=== PATIENT | female | born 1990 | race African-American/Black ===

== ENCOUNTER 2016-12-12 12:59 | Emergency (ER) | payer OTHER ==
[2016-12-12 13:25] VITALS: BP 107/58; PULSE 82; TEMP 98.5; BMI 22.2
[2016-12-12] MEDS ORDERED: IBUPROFEN 400 MG TABLET (FP) PO ONE ×2 (15:14→15:19)
--- NOTE | 2016-12-12 15:26 | PDOC ---
History of Present Illness - General Chief Complaint: Pain Stated Complaint: SWOLLEN ANKLES Time Seen by Provider: 12/12/16 13:59 History Source: Patient - History of Present Illness Occurred: reports: yesterday Lower Extremity Pain Location: bilateral: ankle (L>>R) Past History - Past Medical History Allergies/Adverse Reactions: Allergies Allergy/AdvReac Type Severity Reaction Status Date / Time No Known Allergies Allergy Verified 12/12/16 13:22 Home Medications: Ambulatory Orders NK [No Known Home Medication] 12/12/16 Psychiatric Problems: Yes (ANXEITY) - Psycho/Social/Smoking Cessation Hx Anxiety: No Suicidal Ideation: No Smoking History: Never smoked Have you smoked in the past 12 months: No Information on smoking cessation initiated: No Hx Alcohol Use: No Drug/Substance Use Hx: No Substance Use Type: None Review of Systems - Review of Systems Constitutional: No: Fever Respiratory: No: Shortness of Breath Cardiac (ROS): No: Chest Pain, Palpitations, Chest Tightness Musculoskeletal: Yes: Joint Pain, Joint Swelling *Physical Exam - Vital Signs Last Vital Signs Temp Pulse Resp BP Pulse Ox 98.5 F 82 18 107/58 100 12/12/16 13:23 12/12/16 13:23 12/12/16 13:23 12/12/16 13:23 12/12/16 13:23 - Physical Exam General Appearance: Yes: Appropriately Dressed. No: Apparent Distress HEENT: positive: Normal Voice Neck: positive: Supple Respiratory/Chest: negative: Respiratory Distress Extremity: positive: Tender, Swelling (minimal sweling and tenderness to L ankle diffusely, no erythema, no obvious bites or open wounds, no calf ttp, R ankle w/ no obvious swellign and no ttp) Integumentary: positive: Dry, Warm Neurologic: positive: Fully Oriented, Alert, Normal Mood/Affect Medical Decision Making - Medical Decision Making 12/12/16 15:26 26-year-old female, no significant history, presents with bilateral lower extremity swelling, left greater than right, that she noticed yesterday after leaving congregation. Also complaining of mild ache, mostly to left ankle. Denies any trauma. No fever or chills. No history of similar symptoms. Denies any obvious risk factors for DVT/PE See exam Atraumatic b/l ankle swelling, L>>R No s/o infxn No bites No RFs for DVT/PE ?dependent edema as pt stands for prolonged hrs daily at work vs [employer] vs rheum source -dc w/ pain control, instructions for leg elevated -pmd f/u if sxs persists 12/12/16 15:31 12/12/16 15:34 *DC/Admit/Observation/Transfer Diagnosis at time of Disposition: Ankle swelling Qualifiers: Laterality: unspecified laterality Qualified Code(s): M25.473 - Effusion, unspecified ankle - Discharge Dispostion Disposition: HOME Condition at time of disposition: Good - Patient Instructions Additional Instructions: The source of your symptoms is unclear at this time, but there were no evidence of serious pathology. Take Motrin as needed and elevate extremities at the end of the day. Follow-up with your PMD if symptom continue
== END 2016-12-12 16:22 | disposition home or self-care (01) ==
LOC: JERFT 12:59
DX: M25.473 Effusion, unspecified ankle (principal); F41.9 Anxiety disorder, unspecified
CPT/HCPCS: 99281-25

== ENCOUNTER 2017-02-18 14:31 | Emergency (ER) | payer SELFPAY ==
[2017-02-18 14:34] VITALS: BP 110/64; PULSE 76; TEMP 98; BMI 21.9
[2017-02-18] MEDS ORDERED: IBUPROFEN 600 MG TABLET (FP) PO ONE (15:17)
--- NOTE | 2017-02-18 15:29 | PDOC ---
History of Present Illness - General Chief Complaint: Injury Stated Complaint: INJURY Time Seen by Provider: 02/18/17 15:08 History Source: Patient Exam Limitations: No Limitations - History of Present Illness Initial Comments: 02/18/17 15:09 crush injury to right hand, [place] approximately 5 minutes before was unable to open. This incident occurred last night, ambulance was called but patient chose to return home and have follow-up today. Patient has continued complaints of pain denies numbness or tingling to hand or fingers , 02/18/17 15:50 Occurred: reports: just prior to arrival, this morning Severity: reports: mild Pain Location: reports: upper extremity Modifying Factors: improves with: cold therapy Associated Symptoms (Fall): denies symptoms Past History - Travel Traveled outside of the country in the last 30 days: No Close contact w/someone who was outside of country & ill: No - Past Medical History Allergies/Adverse Reactions: Allergies Allergy/AdvReac Type Severity Reaction Status Date / Time No Known Allergies Allergy Verified 02/18/17 14:34 Home Medications: Ambulatory Orders NK [No Known Home Medication] 12/12/16 Psychiatric Problems: Yes (ANXEITY) - Psycho/Social/Smoking Cessation Hx Anxiety: No Suicidal Ideation: No Smoking History: Never smoked Have you smoked in the past 12 months: No Information on smoking cessation initiated: No Hx Alcohol Use: No Drug/Substance Use Hx: No Substance Use Type: None Trauma Specific PMHX - Complaint Specific PMHX Back Injury: No Neck Injury: No Review of Systems - Review of Systems Able to Perform ROS?: Yes Is the patient limited Serbian proficient: Yes Constitutional: Yes: Symptoms Reported, See HPI Respiratory: No: Symptoms reported Musculoskeletal: Yes: See HPI. No: Symptoms Reported Neurological: Yes: Symptoms reported All Other Systems: Reviewed and Negative *Physical Exam - Vital Signs Last Vital Signs Temp Pulse Resp BP Pulse Ox 98 F 76 18 110/64 99 02/18/17 14:32 02/18/17 14:32 02/18/17 14:32 02/18/17 14:32 02/18/17 14:32 - Physical Exam General Appearance: Yes: Nourished, Appropriately Dressed, Apparent Distress, Mild Distress HEENT: positive: BILLY, Normal ENT Inspection, TMs Normal, Pharynx Normal Musculoskeletal: positive: Normal Inspection. negative: CVA Tenderness Extremity: positive: Normal Capillary Refill, Normal Range of Motion (has tenderness to mid palm and against resistance with flexion and grasp.), Tender Integumentary: positive: Normal Color, Ecchymosis, Bruising Neurologic: positive: casino games dealer II-XII NML intact, Fully Oriented, Alert, Normal Mood/ Affect, Normal Response, Motor Strength 5/5 ED Treatment Course - RADIOLOGY Radiology Studies Ordered: Category Date Time Status HAND- RIGHT [RAD] Stat Radiology 02/18/17 15:08 Ordered Progress Note - Progress Note Progress Note: crush Injury right hand , x-ray negative for fractures. Applied Man wrap applied , ibuprofen for pain relief, and will follow up with Orth O *DC/Admit/Observation/Transfer Diagnosis at time of Disposition: Contusion Qualifiers: Encounter type: initial encounter Contusion area: hand Laterality: right Qualified Code(s): S60.221A - Contusion of right hand, initial encounter - Discharge Dispostion Disposition: HOME Condition at time of disposition: Stable Admit: No - Referrals Referrals: Christiana Boggs MD [Primary Care Provider] - Sylvester Goins MD [Staff Physician] - - Patient Instructions Printed Discharge Instructions: DI for Contusion Additional Instructions: Rest, ice to area on and off for 15 minutes 4-6 times a day Avoid heavy lifting or exercise until pain and swelling is resolved or until further directed Keep area highly elevated to reduce swelling Use splints/Man wrap as directed Followup with orthopedist in one to 2 days if not improving, if significantly improved may wait one week for followup with orthopedist May use ibuprofen 2-200 mg tablets every 6 hours as needed for pain - Post Discharge Activity Work/School Note: Back to Work
== END 2017-02-18 15:56 | disposition home or self-care (01) ==
LOC: JERFT 14:31
DX: S60.221A Contusion of right hand, initial encounter (principal); W23.0XXA Caught, crushed, jammed, or pinched between moving objects, initial encounter; Y93.89 Activity, other specified; Y92.816 Subway car as the place of occurrence of the external cause
CPT/HCPCS: 73130-TC-RT; 99281-25

== ENCOUNTER 2023-08-04 15:43 | Emergency (ER) | payer SELFPAY ==
[2023-08-04 15:58] VITALS: TEMP 97.9; BMI 23.5
[2023-08-04] MEDS ORDERED: diazePAM 2 MG TABLET PO ONE (16:17)
[2023-08-04] MEDS ORDERED: DEXAMETHASONE 4 MG TABLET (FP) PO ONE (16:17)
[2023-08-04] MEDS ORDERED: GABAPENTIN 100 MG CAPSULE PO ONE (16:17)
[2023-08-04 17:17] VITALS: RESP 18
[2023-08-04 20:17] VITALS: BP 123/87; PULSE 82
== END 2023-08-04 20:19 | disposition home or self-care (01) ==
LOC: JER 15:43
DX: R22.0 Localized swelling, mass and lump, head (principal); T78.3XXA Angioneurotic edema, initial encounter
CPT/HCPCS: 99283-25